=== PATIENT | male | born 1990 | race Caucasian/White ===

== ENCOUNTER 2017-02-06 14:51 | Emergency (ER) | payer SELFPAY ==
[2017-02-06 14:59] VITALS: BP 138/76; PULSE 82; TEMP 98.1; BMI 20.3
--- NOTE | 2017-02-06 15:17 | PDOC ---
History of Present Illness - General Chief Complaint: Pain, Acute Stated Complaint: LEFT FOOT AND LEG PAIN Time Seen by Provider: 02/06/17 14:56 History Source: Patient Exam Limitations: No Limitations - History of Present Illness Initial Comments: 02/06/17 15:17 26y M no pmhx presents with L ankle pain. Pt was in [place] 4 daysa go and ' tweaked' his L ankle walking down stairs. He notes he was druynk and didnt notice any pain until 2 days ago msotly at the lateral L foot and mild pain on the proxima fibula on left foot. no numnbess.tnging/weakness he was given an isidro wrap that he has been using and notes the pain seems to be improving daily, but wanted to come for evaluation. [place]. Past History - Past Medical History Allergies/Adverse Reactions: Allergies Allergy/AdvReac Type Severity Reaction Status Date / Time Penicillins AdvReac Verified 02/06/17 14:54 Home Medications: Ambulatory Orders NK [No Known Home Medication] 02/06/17 Other medical history: PNEUMOTHORAX,RIB FRACTURE - Psycho/Social/Smoking Cessation Hx Anxiety: No Suicidal Ideation: No Smoking History: Never smoked Hx Alcohol Use: Yes Drug/Substance Use Hx: No Substance Use Type: None Review of Systems - Review of Systems Able to Perform ROS?: Yes Comments:: 02/06/17 15:34 Constitutional - no reported Fever, Chills, Musculskelatal - +ankle pain no reported back pain, joint swelling skin - no reported bruising, erythema, rash neurological: no reported focal weakness, tingling, numbness hematologic: no reported anemia, easy bruising, easy bleeding *Physical Exam - Vital Signs Last Vital Signs Temp Pulse Resp BP Pulse Ox 98.1 F 82 18 138/76 100 02/06/17 14:54 02/06/17 14:54 02/06/17 14:54 02/06/17 14:54 02/06/17 14:54 - Physical Exam Comments: 02/06/17 15:35 GENERAL: The patient is awake, alert, and fully oriented, Nontoxic - in no acute distress. EXTREMITIES: +tenderness at the 5th metatararsal of L foot, TTP at fibular head , dp intact, perfusion <2sec, no bruising noted NEUROLOGICAL: sensation intact distally, ED Treatment Course - RADIOLOGY Radiology Studies Ordered: Category Date Time Status FOOT-LEFT [RAD] Stat Radiology 02/06/17 15:13 Ordered LEG TIB/FIB-LEFT [RAD] Stat Radiology 02/06/17 15:13 Ordered Medical Decision Making - Medical Decision Making 02/06/17 15:40 will r/o fx with xray 02/06/17 16:43 xrays negative for 5th metatarsal fx, neg tib/fib fx will dc with pmd fu return precautions were discussed I discussed the physical exam findings, ancillary test results and final diagnoses with the patient. I answered all of the patient's questions. The patient was satisfied with the care received and felt comfortable with the discharge plan and treatment plan. The patient will call their primary care physician within 24 hours to arrange follow-up and will return to the Emergency Department with any new, persistent or worsening symptoms. A portion of this note was documented by scribe services under my direction. I have reviewed the details of the note, within reason, and agree with the documentation with the following case summary and management plan written by me *DC/Admit/Observation/Transfer Diagnosis at time of Disposition: Foot pain, left - Discharge Dispostion Disposition: HOME Condition at time of disposition: Improved Admit: No - Referrals Referrals: [facility] [Provider Group] - Patient Instructions Printed Discharge Instructions: DI for Foot Pain Additional Instructions: Return to the emergency department immediately with ANY new, persistent or worsening symptoms. ibuprofen/tylenol for pain You MUST call and follow up with your doctor tomorrow for further evaluation of your symptoms. Results were discussed with you. Please make sure your doctor reviews the results of your emergency evaluation. If you had any xrays during your visit, it was read preliminarily by myself, a Radiologist will review it and if there are any additional findings we will call you. Print Language: ITALIAN
== END 2017-02-06 16:52 | disposition home or self-care (01) ==
LOC: FER 14:51
DX: M79.672 Pain in left foot (principal)
CPT/HCPCS: 73590-TC-LT; 73630-TC-LT; 99282-25

== ENCOUNTER 2023-04-26 14:09 | Emergency (ER) | payer SELFPAY ==
[2023-04-26 14:18] VITALS: BP 133/92; PULSE 106; RESP 16; TEMP 98.7; BMI 23.1
[2023-04-26] MEDS ORDERED: predniSONE 20 MG TABLET (UD) PO ONE (14:39)
[2023-04-26] MEDS ORDERED: predniSONE 20 MG TABLET (UD) ONE (14:41)
== END 2023-04-26 14:46 | disposition home or self-care (01) ==
LOC: FER 14:09
DX: L23.7 Allergic contact dermatitis due to plants, except food (principal); L29.9 Pruritus, unspecified
CPT/HCPCS: 99283-25

== ENCOUNTER 2023-05-26 19:14 | Emergency (ER) | payer OTHER ==
[2023-05-26 19:32] VITALS: BP 133/95; PULSE 118; RESP 18; TEMP 98.5; BMI 23.1
[2023-05-26] MEDS ORDERED: DOXYCYCLINE HYCLATE 100 MG CAPSULE PO ONE ×2 (19:57→20:03)
== END 2023-05-26 20:10 | disposition home or self-care (01) ==
LOC: FER 19:14
DX: S30.860A Insect bite (nonvenomous) of lower back and pelvis, initial encounter (principal); W57.XXXA Bitten or stung by nonvenomous insect and other nonvenomous arthropods, initial encounter
CPT/HCPCS: 99283-25